=== PATIENT | male | born 1960 | race Caucasian/White ===

== ENCOUNTER 2018-10-11 14:55 | Inpatient (IN) | payer OTHER ==
[~2018-10-11] VITALS: Ht 193 cm; Wt 99.8 kg
[2018-10-11 15:05] VITALS: BP_SYST 124
[2018-10-11] MEDS ORDERED: NACL 0.9% 1,000 ML IV ONE (15:30)
[2018-10-11 15:36] LABS: BASOPHILS # (AUTO) 0.1 K/uL (0.0-0.2); BASOPHILS % (AUTO) 0.7 % (0.0-2.0); EOSINOPHILS # (AUTO) 0.2 K/uL (0.0-0.4); EOSINOPHILS % (AUTO) 1.6 % (0.0-4.0); HEMATOCRIT 47.3 % (36-54); HEMOGLOBIN 16.3 g/dL (14.0-18.0); LYMPHOCYTES % (AUTO) 33.3 % (20.5-51.5); MEAN CORPUSCULAR HEMOGLOBIN 31 pg (27-31); MEAN CORPUSCULAR HGB CONC 35 % (32-36); MEAN CORPUSCULAR VOLUME 91 fL (79.0-98.0); MONOCYTES # (AUTO) 1.1 K/uL (0.0-1.0); MONOCYTES % (AUTO) 9.1 % (1.7-9.3); NEUTROPHILS # (AUTO) 6.6 K/uL (1.8-7.7); NEUTROPHILS % (AUTO) 55.3 % (40.0-70.0); PLATELET COUNT (AUTO) 274 K/uL (130-430); RED CELL DISTRIBUTION WIDTH 13.5 % (9.0-15.0); WHITE BLOOD COUNT (AUTO) 11.9 K/uL (4.8-10.8)
[2018-10-11] MEDS ORDERED: ADENOSINE 6MG/2ML VIAL ONE (15:36)
[2018-10-11 15:49] LABS: CALCIUM 9.5 mg/dL (8.4-11.0); CREATININE 0.91 mg/dL (0.55-1.30); POTASSIUM 4.4 mmol/L (3.5-5.1)
[2018-10-11 15:51] LABS: INR 0.9 (0.80-1.20); PROTHROMBIN TIME 9.5 SECS (9.5-12.5)
[2018-10-11] MEDS ORDERED: ADENOSINE 6MG/2ML VIAL IVP ONE ×2 (16:00→16:15)
[2018-10-11 16:07] LABS: ALBUMIN 3.7 g/dL (3.4-4.8); TOTAL BILIRUBIN 0.6 mg/dL (0.0-1.0)
[2018-10-11] MEDS ORDERED: LORazepam 2 MG/ML VIAL (FOR ER USE) IVP ONE (16:30)
[2018-10-11] MEDS ORDERED: DILTIAZEM HCL 60 MG TABLET PO ONE (16:45)
[2018-10-11] MEDS ORDERED: DILTIAZEM HCL 60 MG TABLET ONE (16:47)
[2018-10-11] MEDS ORDERED: METO25TA6 PO (16:49)
[2018-10-11] MEDS ORDERED: METF-510 PO (16:49)
[2018-10-11] MEDS ORDERED: ASPI-858 PO (16:49)
[2018-10-11] MEDS ORDERED: GLIM4TAB PO (16:49)
[2018-10-11] MEDS ORDERED: LOSA100T3 PO (16:49)
[2018-10-11] MEDS ORDERED: LIP40 PO (16:49)
[2018-10-11] MEDS ORDERED: OMEG1CAP PO (16:49)
[2018-10-11 17:16] VITALS: BP_SYST 121
[2018-10-11] MEDS ORDERED: DEXTROSE 50% JECT 50 ML DISP.SYRIN IVP PRN (17:45)
[2018-10-11] MEDS ORDERED: ACETAMINOPHEN 325 MG TABLET PO PRN (18:00)
[2018-10-11] MEDS ORDERED: DILTIAZEM HCL 25 MG/5 ML VIAL IVP PRN (18:00)
[2018-10-11] MEDS ORDERED: ASPIRIN 325 MG TABLET PO SCH (18:00)
[2018-10-11] MEDS ORDERED: TEMAZEPAM 15 MG CAPSULE PO PRN (18:00)
[2018-10-11 20:00] VITALS: BP_SYST 115
[2018-10-11] MEDS: NICOTINE 21 MG/24 HR PATCH.TD24 TD SCH (20:19)
[2018-10-11] MEDS: METOPROLOL TARTRATE 25 MG TABLET PO SCH (20:20)
[2018-10-11] MEDS: INSULIN REGULAR, HUMAN 100 UNITS/ML, 10 ML VIAL (novoLIN R) SUBCUT PRN (20:23)
[2018-10-11] MEDS ORDERED: GLIMEPIRIDE 2 MG TABLET PO SCH (21:00)
[2018-10-11 23:25] VITALS: BP_SYST 113
[2018-10-12 03:29] LABS: BILIRUBIN,URINE NEGATIVE (NEGATIVE); BLOOD, URINE NEGATIVE (NEGATIVE); CLARITY/URINE CLEAR (CLEAR); COLOR,URINE YELLOW (YELLOW); GLUCOSE,URINE 1+ (NEGATIVE); KETONES,URINE NEGATIVE (NEGATIVE); LEUKOCYTE ESTERASE ,URINE NEGATIVE (NEGATIVE); NITRITE, URINE NEGATIVE (NEGATIVE); PROTEIN URINE NEGATIVE (NEGATIVE); UROBILINOGEN,URINE 0.2 (0.2-1.0)
[2018-10-12] MEDS: INSULIN REGULAR, HUMAN 100 UNITS/ML, 10 ML VIAL (novoLIN R) SUBCUT PRN ×2 (06:01→12:29)
[2018-10-12 06:56] LABS: BASOPHILS # (AUTO) 0.1 K/uL (0.0-0.2); BASOPHILS % (AUTO) 0.8 % (0.0-2.0); EOSINOPHILS # (AUTO) 0.2 K/uL (0.0-0.4); EOSINOPHILS % (AUTO) 2.1 % (0.0-4.0); HEMATOCRIT 42.6 % (36-54); HEMOGLOBIN 14.6 g/dL (14.0-18.0); LYMPHOCYTES # (AUTO) 3.3 K/uL (1.0-5.5); LYMPHOCYTES % (AUTO) 39.5 % (20.5-51.5); MEAN CORPUSCULAR HEMOGLOBIN 31 pg (27-31); MEAN CORPUSCULAR HGB CONC 34 % (32-36); MEAN CORPUSCULAR VOLUME 91 fL (79.0-98.0); MONOCYTES # (AUTO) 0.7 K/uL (0.0-1.0); MONOCYTES % (AUTO) 8.7 % (1.7-9.3); NEUTROPHILS % (AUTO) 48.9 % (40.0-70.0); PLATELET COUNT (AUTO) 224 K/uL (130-430); RED BLOOD CELL COUNT(AUTO) 4.67 MIL/uL (4.2-6.2); RED CELL DISTRIBUTION WIDTH 13.2 % (9.0-15.0); WHITE BLOOD COUNT (AUTO) 8.2 K/uL (4.8-10.8)
[2018-10-12 07:20] LABS: CALCIUM 9.1 mg/dL (8.4-11.0); POTASSIUM 4.3 mmol/L (3.5-5.1)
[2018-10-12 07:21] LABS: ALBUMIN 3.3 g/dL (3.4-4.8); CREATININE 0.56 mg/dL (0.55-1.30); TOTAL BILIRUBIN 0.5 mg/dL (0.0-1.0)
[2018-10-12 07:22] LABS: FREE T4 (FREE THYROXINE) 0.7 ng/dL (0.6-1.6)
[2018-10-12 08:00] VITALS: BP_SYST 125
[2018-10-12 08:04] LABS: THYROID STIMULATING HORMONE 1.06 uIu/mL (0.34-4.82)
[2018-10-12] MEDS: GLIMEPIRIDE 2 MG TABLET PO SCH ×2 (08:14→12:27)
[2018-10-12] MEDS: NICOTINE 21 MG/24 HR PATCH.TD24 TD SCH (08:19)
[2018-10-12] MEDS: METOPROLOL TARTRATE 25 MG TABLET PO SCH (08:19)
[2018-10-12] MEDS ORDERED: OMEGA-3/DHA/EPA/FISH OIL 1 GM CAPSULE PO SCH (09:00)
[2018-10-12] MEDS ORDERED: LOSARTAN POTASSIUM 50 MG TABLET (COZAAR) PO SCH (09:00)
[2018-10-12] MEDS ORDERED: ATORVASTATIN 20 MG TABLET PO SCH (09:00)
[2018-10-12] MEDS ORDERED: ASPIRIN 325 MG TABLET PO SCH (09:00)
[2018-10-12] MEDS ORDERED: METOPROLOL TARTRATE 25 MG TABLET PO SCH (09:00)
[2018-10-12 12:16] VITALS: BP_SYST 127
[2018-10-12 14:14] VITALS: BP_SYST 127
== END 2018-10-12 14:40 | disposition home or self-care (01) | DRG 310 ==
LOC: SED 14:55 → STU 16:33
PROVIDERS: ADMIT Internal Medicine; ATTEND Internal Medicine
DX: I47.1 Supraventricular tachycardia (principal); E11.9 Type 2 diabetes mellitus without complications; E78.5 Hyperlipidemia, unspecified; I10 Essential (primary) hypertension; F17.210 Nicotine dependence, cigarettes, uncomplicated; Z82.3 Family history of stroke; Z79.899 Other long term (current) drug therapy; Z79.82 Long term (current) use of aspirin
CPT/HCPCS: 36415; 71045; 80053; 80061; 81003; 82962; 83880; 84439; 84443-TC; 84484; 85025; 85610-TC; 93005; 93306; 96374; 96375; 99285; G0378; J0153; J2060